=== PATIENT | male | born 1980 | race Caucasian/White ===

== ENCOUNTER 2016-08-24 21:26 | Emergency (ER) | payer MEDICAID ==
[~2016-08-24] VITALS: Ht 185.4 cm; Wt 74.3 kg
[~2016-08-24 21:26] MED LIST: FAMO40TA7 PO; HYDR-4246 PO; IBUP-1724 PO; NAPR500T PO; OMEP20CA10 PO; PENI500T2 PO
--- OUTSIDE RECORDS SUMMARY | 2016-08-24 21:30 | XMS REPORT | Continuity of Care Document ---
Author Author [facility] Organization [facility] Address Unknown Phone Unavailable Care Team Providers Care Beam Builder Helper Name Role Phone Jose MILLER MD Primary Care Physician [phone] Insurance Providers Guarantor Timmy Nava Address [address] [address] Email DENIED 16 Payer [facility] Policy Number [id number] Subscriber's Name Timmy Nava Joy Relationship 18 Self Effective Date 16 Expiration Date 16 Advance Directives Directive Response Recorded Date/Time Advanced Directives Type None 07/24/16 1:47pm Chief Complaint and Reason for Visit Chief Complaint Toothache Reason for Visit [id number] Problems Active Problems Medical Problem Onset Date Status Esophagitis Unknown Acute Gastric reflux Unknown Acute Strep pharyngitis Unknown Acute Viral illness Unknown Acute Past Problems Medical Problem Onset Date Minor head injury without loss of consciousness Unknown Pain, dental Unknown Scalp laceration Unknown Medications Current Home Medications Medication Dose Units Route Directions Days Qty Instructions Start Date Famotidine 40 Mg Tablet 40 Mg Oral Daily 12/13/15 Hydrocodone/Acetaminophen ([place] 5-325 Tablet) 5-325 Tablet 1 Tab Oral Every 4 Hours as needed for Pain 3 Days 18 Tablet 07/24/16 Ibuprofen 200 Mg Tablet 2 Tab Oral Every 4 Hours as needed for Pain 07/24/16 Naproxen (Naprosyn) 500 Mg Tablet 1 Tab Oral Twice A Day as needed for Pain 20 Tablet 07/24/16 Omeprazole 20 Mg Capsule.dr 20 Mg Oral Daily 12/13/15 Penicillin V Potassium 500 Mg Tablet 1 Tab Oral Four Times Daily 10 Days 40 07/24/16 Past Home Medications Medication Directions Ordered Status Amoxicillin 500 Mg Tablet, 500 Mg Oral Three Times A Day 04/25/15 Discontinued Guaifenesin/P-Ephed Hcl (Mucinex D Tablet) 1 Tab.sr .12 H Tab.sr.12h, 1 Tab.sr Oral As Needed 03/29/11 Discontinued Hydrocodone/Acetaminophen ([place] 5-325 Tablet) 1 Each Tablet, 1-2 Tab Oral Every 6 Hours as needed for Pain 04/25/15 Discontinued Miscellaneous Information (No Known Medications) Misc, 03/06/12 Discontinued No Routine Meds , 08/08/15 Discontinued Social History Social History Problem Response Recorded Date/Time Onset Date Status Hx Substance Use No 07/24/2016 1:40pm Not Applicable Not Applicable Hx Alcohol Use Y VERY RARE 07/24/2016 1:40pm Not Applicable Not Applicable Tobacco Usage smoke 10/13/2014 10:06am Not Applicable Not Applicable Query Response Start Date Stop Date Smoking Status Current every day smoker Hospital Discharge Instructions No hospital discharge instructions. Plan of Care Discharge Date 07/24/16 2:55pm Disposition 01 DISCHARGED HOME, SELF-CARE Condition at Discharge Improved Instructions/Education Provided ED Dental Follow-up Toothache (ED) Prescriptions See Medication Section Referrals Jose MILLER MD Order Date: 2 Days Address: [address] [place] [address] Note: AUGUSTUS PAZ APRN Address: [address] [place] [address] [phone] Care Plan and Goals Physician Care Plan Problem: Dental Pain Goal: Follow up with primary care provider Instructions: Take medications and follow care plan as discussed/written Functional Status No functional status results. Allergies, Adverse Reactions, Alerts No known allergies. Immunizations Query Response on File Recorded Date/Time Hx Influenza Vaccination No 10/13/14 9:46am Hx Tetanus, Diptheria, Pertussis GREATER THAN 5 YRS AGO 10/13/14 9:46am Hx Influenza Vaccination No 10/13/14 9:46am Hx Tetanus, Diptheria, Pertussis GREATER THAN 5 YRS AGO 10/13/14 9:46am DTaP Vaccine History 201107/24/16 1:40pm Influenza Vaccine Hx NONE 07/24/16 1:40pm Tdap Vaccine Hx 201112/13/15 3:35pm Vital Signs Acute Vital Signs Vital Response Date/Time Temperature (Fahrenheit) 97.0 deg F (96.8 - 99.1) 07/24/2016 2:55pm Temperature (Calculated Celsius) 36.61207 degrees C (36.0 - 37.3) 07/24/2016 2:55pm Pulse Rate (adult) 78 bpm (60 - 100) 07/24/2016 2:55pm Respiratory Rate 14 breaths/min (10 - 20) 07/24/2016 2:55pm O2 Sat by Pulse Oximetry 98 % (90 - 100) 07/24/2016 2:55pm Blood Pressure 135/86 mm Hg 07/24/2016 2:55pm Height (Feet) 6 feet 07/24/2016 1:28pm Height (Inches) 1.00 inches 07/24/2016 1:28pm Weight (Kilograms) 80.400 kg 07/24/2016 1:28pm Body Mass Index (BMI) 23.0 07/24/2016 1:28pm Results No known relevant diagnostic tests, laboratory data and/or discharge summary. Procedures No known history of procedures. Encounters Encounter Location Arrival/Admit Date Discharge/Depart Date Attending Provider Departed Emergency Room [facility] 07/24/16 1:23pm 07/24/16 2: 55pm CHARLES WAGNER DO Recent Diagnosis
[2016-08-24 21:48] VITALS: BP 125/81; PULSE 61; RESP 12; TEMP 98.2; O2SAT 100; Ht 185.4 cm; Wt 74.3 kg
--- NOTE | 2016-08-24 22:06 | ERPDOC ---
Departure Disposition Decision Date: Aug 24, 2016 Disposition Decision Time: 22:05 Disposition: 01 DISCHARGED HOME, SELF-CARE Impression Impression Impression: Primary Impression: Pain, dental Additional Impression: Tooth fracture Encounter type: initial encounter Fracture type: closed Qualified Codes: S02.5XXA - Fracture of tooth (traumatic), initial encounter for closed fracture Severity: Moderate Condition: Stable Seen By: Mid-level only Referrals: Jose MILLER MD (PCP) AUGUSTUS PAZ APRN (Family) Patient Instructions: Dental Caries (ED) Problems/Meds/Labs Reviewed?: Yes Medications reviewed and manag: Yes Additional Instructions: Take the Percocet as needed for pain. Do not take the Tramadol as well. May also take Naproxen as needed for pain. Follow up with your dentist on September 07 as scheduled. Follow up care ordered?: Yes Mental Status: Alert Scripts Oxycodone HCl/Acetaminophen (Percocet 5-325 mg Tablet) 5-325 Tablet 1 TAB PO Q6H Y for PAIN, #12 TAB 0 Refills Take 1 tablet, by mouth, every 4 hours as needed for pain. Prov: LILIANARIKBANDAR Jorge APRN 08/24/16 HPI General Chief Complaint: Toothache Stated Complaint: TOOTHACHE Time Seen by Provider: 21:56 Source: patient Exam Limitations: no limitations HPI Dental Initial Comments He has had some trouble with right lower molar pain for the last month. Had fractured the molar at that time and was evaluated in ER. He was given Rx for Remer which he did take but they caused him to vomit even when he took them with food. He has followed up with a dentist yesterday and was given Rx for Tramadol. He was referred up to [facility] for his wisdom teeth to be removed and the fractured tooth repaired. He did fill the Tramadol today but it is not touching his pain. The dentist told him that he has a nerve that is exposed. He does have a follow up appointment for September 07 scheduled. Occurred At: home Onset: Gradual Duration: 1 week Severity: moderate Location: R lower Problem: fractured tooth Associated Symptoms: fractured tooth, DENIES: cheek swelling, cough, dental trauma, diarrhea, drooling, dyspnea, facial swelling, fever, gum laceration, gum swelling, headache, high pitched cry/voice, hoarseness, impacted tooth, loose tooth, nausea, retained foreign body, rhinorrhea, sinus drainage, sinus pain, trouble chewing, trouble swallowing, vomiting Allergies: Coded Allergies: No Known Allergies (Unverified , 07/24/16) Past History Past Medical History Pt denies signifigant PMH Respiratory: pneumonia GI: GERD Surgical History Denies Surgeries Family History Family PMH: FOUND: other Vaccines Hx Influenza Vaccination: No Social History Smoking Status: Never smoker Substance Use Type: does not use Alcohol Intake: none Sexuality: female partner Review of Systems Constitutional Constitutional: DENIES: chills, dizziness, fatigue, fever, weakness Eyes Vision: DENIES: blurring, double vision ENMT Ears: DENIES: drainage, pain Sinuses: DENIES: congestion, rhinorrhea Mouth/Throat: DENIES: change in voice, hoarsness, painful swallowing, scratchy throat, sore throat Teeth: chipped/cracked tooth (right lower back molar), DENIES: bruxism, implants, missing teeth, pain, prior orthodontia Jaw: DENIES: clicking, pain, popping Integumentary Skin: DENIES: rash Neurological General: DENIES: headache, numbness, tingling, weakness Exam General General Nourishment: well nourished, well developed, appears stated age, no acute distress, adult General Body Habitus: well groomed Vital Signs: RN Vital Signs have been reviewed: Yes Height (Feet): 6 Height (Inches): 1.00 [place] Dental Face: NOT FOUND: bruising, erythema, swelling, tender Jaw: NOT FOUND: asymmetry, trismus Gums: moist, pink, NOT FOUND: exudate, lesion, swelling Teeth: fractures (right lower jaw, back molar), NOT FOUND: caries, missing Pharynx: NOT FOUND: cobblestoning, erythema, exudate, lateral pillar signs, swelling, uvular deviation Tonsils: NOT FOUND: erythema, exudate Neck: NOT FOUND: L anterior adenopathy, L posterior adenopathy, R anterior adenopathy, R posterior adenopathy Neurologic RN Documented GCS Eye Opening: Verbal: Motor: Total: Differential Diagnoses Considering: Gingival Abscess, Gingivitis, Tooth Fracture Progress Results/Orders Orders Procedure Category Date Status Time Oxycodone/[place] 5/325 PHA 08/24/16 Complete (Prepack) (Percocet 22:15 Medications Current ED Medications Oxycodone/ Acetaminophen (Percocet 5 (Prepack)) 1 pack O ONCE SENT HOME ; Start 08/24/16 at 22:15; Stop 08/24/16 at 22:16; Status DC Progress Progress Will go ahead and have him stop the Remer and Tramadol. Will have him try some Percocet at this time. Follow up with the dentist as scheduled on September 07. Follow up sooner if any other concerns. BANDAR ADAN APRN Aug 24, 2016 22:06
[2016-08-24] MEDS ORDERED: OXYC1TAB8 PO (22:07)
[2016-08-24] MEDS ORDERED: OXYCODONE/APAP 5/325 (Prepack) SENT HOME ONE (22:15)
--- NOTE | 2016-08-24 23:12 | NUR ---
DEPART PT IS DISCHARGED AT THIS TIME, INSTRUCTIONS ARE REVIEWED AND UNDERSTANDING IS VOICED. PT LEAVES AMBULATORY WITH FEMALE.
[2016-08-24] MEDS ORDERED: ONDANSETRON ODT 4mg #3 (PrePack) SENT HOME ONE (23:15)
== END 2016-08-24 23:12 | disposition home or self-care (01) ==
LOC: ED 21:26
DX: S02.5XXA Fracture of tooth (traumatic), initial encounter for closed fracture (principal); X58.XXXA Exposure to other specified factors, initial encounter; Y93.9 Activity, unspecified; Y92.009 Unspecified place in unspecified non-institutional (private) residence as the place of occurrence of the external cause; Y99.8 Other external cause status